=== PATIENT | female | born 1960 | race Caucasian/White ===

== ENCOUNTER 2018-11-13 12:31 | Emergency (ER) | payer OTHER ==
--- NOTE | 2018-11-13 12:34 | PDOC ---
History of Present Illness - General Chief Complaint: CVA/TIA Stated Complaint: NUMBNESS IN FACE ON WEDNESDAY Time Seen by Provider: 11/13/18 12:34 - History of Present Illness Initial Comments: 11/13/18 13:43 Chief complaint: Numbness and tingling History of present illness: Patient complains of numbness and tingling in the left side of her face and left arm that occurred on Wednesday morning, lasted several hours, and then resolve completely. There has been no recurrence. Review of systems: Denies any visual symptoms or focal weakness, denies unsteadiness of gait. Denies chest pain, shortness of breath, abdominal pain, nausea, vomiting, diarrhea, urinary tract symptoms, vaginal bleeding or discharge, headache. Remainder systems reviewed and negative. Patient takes no hormones, does not have diabetes high blood pressure or elevated cholesterol. Past medical history: Patient states that she is completely healthy, has no medical or surgical illnesses past her present, and takes no medications. Social history: She is self-employed, works from home, does not smoke, drink alcohol, or use drugs. She is fully ambulatory and cares for herself without disability Family history: Both mother and father with coronary artery disease and there mid to late 70s. One brother with coronary artery disease in his late 60s. Another brother and sister are healthy. Physical exam: Alert and oriented well-developed well-nourished no acute distress cheerful and cooperative. She is asymptomatic at present, and has had no symptoms since the original episode Wednesday morning Afebrile, vital signs normal PERRLA 4 mm, fundi benign with sharp disc margins good central venous pulsations no hemorrhages or exudates ENT clear Neck supple without bruit mass or nodes Chest clear CV regular without murmur rub or gallop Abdomen benign Neurological C2 to 12 intact. Strength full and symmetric. No focal sensory or motor deficits. Gait stable and unimpaired. Cerebellum intact. Extremities no CCE Skin clear, no rash, adequate turgor and wet mucous membranes Impression: Well-appearing female in no distress, one self-limited episode of numbness and tingling of the face and left arm that happened soon after arising from bed in the morning. No coughing current illnesses and no risk factors for cardiac or neurologic disease. This is unlikely to be cardiac or neurogenic, most likely anxiety or atypical migraine Plan: Labs and CT of the brain. Further evaluation treatment depending on results Past History - Past Medical History Allergies/Adverse Reactions: Allergies Allergy/AdvReac Type Severity Reaction Status Date / Time Penicillins Allergy Verified 11/13/18 12:32 Home Medications: Ambulatory Orders NK [No Known Home Medication] 11/13/18 ED Treatment Course - LABORATORY CBC & Chemistry Diagram: 11/13/18 13:05 11/13/18 13:05 Medical Decision Making - Medical Decision Making 11/13/18 14:[address] EKG shows left axis, rate of 102, no ST-T wave changes. Blood work without significant abnormalities. Urinalysis clear No further symptoms. Most likely the patient had the arm numbness due to her position while sleeping, and became anxious upon awakening, resulting in some facial numbness. Reassured. Follow-up primary physician. Return to ER if symptoms recur or any further symptoms develop. Fully ambulatory, cheerful and asymptomatic at discharge. 11/13/18 14:56 *DC/Admit/Observation/Transfer Diagnosis at time of Disposition: Anxiety - Discharge Dispostion Disposition: HOME Condition at time of disposition: Stable Decision to Admit order: No - Referrals - Patient Instructions Printed Discharge Instructions: DI for Anxiety -- Adult, DI for Hyperventilation Additional Instructions: Return to ER if symptoms recur or further symptoms develop. Otherwise follow-up primary physician - Post Discharge Activity
[2018-11-13 12:49] VITALS: BP 159/93; PULSE 101; TEMP 98.6; BMI 23.8
[2018-11-13 13:59] LABS: INR 1.06 (0.82-1.09); PROTHROMBIN TIME (PATIENT) 11.9 SEC (10.2-13.0)
[2018-11-13 14:03] LABS: BASO % 0.9 % (0-2.0); HEMOGLOBIN 13.3 GM/dl (10.7-15.3); LYMPH % 13.8 % (8-40); MCH 28.2 pg (25.7-33.7); MCHC 31.7 g/dl (32.0-36.0); MEAN CELL VOLUME 88.9 fl (80-96); MEAN PLT VOLUME 8.6 fl (7.5-11.1); MONO % 5.7 % (3.8-10.2); NEUT % 78.6 % (42.8-82.8); PLATELET COUNT 325 K/MM3 (134-434); RBC 4.73 M/mm3 (3.60-5.2); RDW 14.4 % (11.6-15.6); WHITE BLOOD COUNT 6.6 K/mm3 (4.0-10.8)
[2018-11-13 14:05] LABS: ALBUMIN 4.6 g/dl (3.4-5.0); ALK PHOS 97 U/L (45-117); ANION GAP 11 MMOL/L (8-16); BILIRUBIN,TOTAL 0.8 mg/dl (0.2-1); BLOOD UREA NITROGEN 20 mg/dl (7-18); CALCIUM 9.7 mg/dl (8.5-10); CHLORIDE 103 mmol/L (98-107); CO2 24 mmol/L (21-32); CREATININE 0.7 mg/dl (0.55-1.3); GLUCOSE,RANDOM 139 mg/dl (74-106); POTASSIUM 3.8 mmol/L (3.5-5.1); SGOT/AST 36 U/L (15-37); SGPT/ALT 44 U/L (13-61); SODIUM 138 mmol/L (136-145); TOT PROT 7.9 g/dl (6.4-8.2)
[2018-11-13 14:12] LABS: PH,URINE 5.5 (4.5-8); URINE APPEARANCE Clear; URINE BILIRUBIN Negative (NEGATIVE); URINE COLOR Yellow; URINE GLUCOSE (UA) Negative (NEGATIVE); URINE KETONE Negative (NEGATIVE); URINE LEUK ESTERASE Negative (NEGATIVE); URINE NITRITE Negative (NEGATIVE); URINE PROTEIN Negative (NEGATIVE); URINE UROBILINOGEN 0.2 (0.2-1.0)
--- NOTE | 2018-11-14 11:07 | EKG ---
Test Reason : Blood Pressure : / mmHG Vent. Rate : 102 BPM Atrial Rate : 102 BPM P-R Int : 144 ms QRS Dur : 080 ms QT Int : 336 ms P-R-T Axes : 048 -40 025 degrees QTc Int : 437 ms SINUS TACHYCARDIA LEFT AXIS DEVIATION ABNORMAL ECG NO PREVIOUS ECGS AVAILABLE Confirmed by KARTHIK MEYERS, ROBBIE ([id number]) on 11/14/2018 11:06:53 AM Referred By: ERIC DAS Confirmed By:ROBBIE ANGELES MD
== END 2018-11-13 15:05 | disposition home or self-care (01) ==
LOC: FER 12:31
DX: F41.9 Anxiety disorder, unspecified (principal)
CPT/HCPCS: 36415; 70450-TC; 80053; 81003; 82550; 84484; 85025; 85610; 93005; 99282-25

== ENCOUNTER 2024-03-14 11:13 | Emergency (ER) | payer OTHER ==
[2024-03-14 12:53] VITALS: BP 158/96; PULSE 100; RESP 20; TEMP 97.8; BMI 18.5
[2024-03-14 12:54] LABS: HEMOGLOBIN 13.6 G/dL (10.7-15.3); MCH 29.6 pg (25.7-33.7); MCHC 32.4 g/dl (32.0-36.0); MEAN CELL VOLUME 91.4 fl (80-96); MEAN PLT VOLUME 8.3 fl (7.5-11.1); PLATELET COUNT 365.3 10^3/uL (134-434); RDW 14.5 % (11.6-15.6); WHITE BLOOD COUNT 7.1 10^3/uL (4.0-10.8)
[2024-03-14 13:11] LABS: ALBUMIN 5.1 g/dl (3.4-5.0); BILIRUBIN,TOTAL 0.5 mg/dl (0.2-1); CALCIUM 10.3 mg/dl (8.5-10.1); CREATININE 0.7 mg/dl (0.6-1.3); POTASSIUM 3.8 mmol/L (3.5-5.1); TOT PROT 7.8 g/dl (6.4-8.2)
[2024-03-14 14:51] LABS: ANISOCYTOSIS 1+; PLATELET ESTIMATE ADEQUATE
== END 2024-03-14 14:03 | disposition home or self-care (01) ==
LOC: FER 11:13
DX: R63.4 Abnormal weight loss (principal); R53.81 Other malaise; R53.83 Other fatigue; R63.0 Anorexia; R42 Dizziness and giddiness; R53.1 Weakness
CPT/HCPCS: 36415; 80053; 84484; 85027; 93005; 99284-25